=== PATIENT | male | born 1970 | race Caucasian/White ===

== ENCOUNTER → 2017-05-24 | Outpatient (CLI) | payer BC ==
[~2017-05-24] MED LIST: HCTZ 25MG TAB25 MG PO; PRINIVIL40 MG PO
== END ==
LOC: COL.RAD 08:02
DX: R68.81 Early satiety (principal); K21.9 Gastro-esophageal reflux disease without esophagitis; R14.2 Eructation
CPT/HCPCS: A9541

== ENCOUNTER 2019-07-08 12:39 | Emergency (ER) | payer BC ==
[~2019-07-08] VITALS: Ht 182.9 cm; Wt 136.4 kg
[2019-07-08 12:43] VITALS: TEMP 98.5
[2019-07-08 13:29] LABS: BASO % 0.1 % (0.0-2.0); EOS # 0.1 (0.0-0.7); EOS % 0.7 % (0-4.0); GRAN # 6.2 (1.4-6.5); GRAN % 74.5 % (42.2-75.2); HEMATOCRIT 38.1 % (42.0-52.0); HEMOGLOBIN 12.9 g/dl (13.5-18.0); LYMPH # 1.4 (1.2-3.4); LYMPH % 16.4 % (20.0-51.0); MEAN CELL VOLUME 90 fl (80.0-100.0); MEAN CORPUSCULAR HEMOGLOBIN 31 pg (27.0-31.0); MEAN CORPUSCULAR HGB CONC 34 g/dl (33.0-37.0); MEAN PLATELET VOLUME 9.3 fl (7.4-10.4); MONO # 0.7 (0.1-0.6); MONO % 7.8 % (1.7-9.3); PLATELET COUNT 228 K/mm3 (130-400); RED BLOOD COUNT 4.22 M/mm3 (4.20-5.60)
[2019-07-08 13:42] LABS: ALBUMIN 4.2 gm/dL (3.5-5.0); BILIRUBIN,TOTAL 0.7 mg/dL (0.0-1.0); C-REACTIVE PROTEIN 1.3 mg/dL (0.0-0.9); CALCIUM 9.2 mg/dL (8.4-10.2); CREATININE, serum 0.59 (0.66-1.25); TOTAL PROTEIN 7.1 gm/dL (6.4-8.2)
[2019-07-08] MEDS ORDERED: NORVASC 5MG5 MG/TAB PO (14:19)
[2019-07-08 14:38] VITALS: BP 155/95; PULSE 76
[2019-07-08 14:42] LABS: ERYTHROCYTE SEDIMENTATION RATE 26 mm/hr (0-15)
== END 2019-07-08 14:36 | disposition home or self-care (01) ==
LOC: COL.ER 12:39
PROVIDERS: Emergency Medicine
DX: R51 Headache (principal); I10 Essential (primary) hypertension; Z86.69 Personal history of other diseases of the nervous system and sense organs